=== PATIENT | female | born 1990 | race Caucasian/White ===

== ENCOUNTER 2019-11-19 14:15 | Inpatient (IN) ==
[2019-11-24] MEDS ORDERED: MAALOX PLUS LIQUID PO PRN (17:31)
[2019-11-24] MEDS ORDERED: IMODIUM PO PRN (17:31)
[2019-11-24] MEDS ORDERED: D5W 1,000 ML IV PRN (17:31)
[2019-11-24] MEDS ORDERED: NICODERM PATCH TD PRN (17:31)
[2019-11-24] MEDS ORDERED: SENOKOT PO PRN (17:31)
[2019-11-24] MEDS ORDERED: MOTRIN PO PRN (17:31)
[2019-11-24] MEDS ORDERED: DULCOLAX PR PRN (17:31)
[2019-11-24] MEDS ORDERED: TUBERSOL ID ONE (17:31)
[2019-11-24] MEDS ORDERED: ZOFRAN IV PRN (17:31)
[2019-11-24] MEDS ORDERED: ZOFRAN ODT PO PRN (17:31)
[2019-11-24] MEDS ORDERED: TYLENOL PO PRN (17:31)
[2019-11-24] MEDS ORDERED: SUBUTEX SL SCH (17:45)
[2019-11-24 18:05] LABS: HEMATOCRIT 36.6 % (37.0-47.0); HEMOGLOBIN 12.2 g/dL (12.0-16.0); MCH 27.9 PG (27-31); MCHC 33.3 g/dL (33-37); MCV 83.8 FL (81-99); MPV 9.5 FL (7.4-10.4); RBC 4.37 XMIL (4.2-5.4); RDW 13.7 % (11.5-14.5); WBC 8.07 X1000 (4.8-10.8)
[2019-11-24 18:22] LABS: URINE SOURCE VOIDED
[2019-11-24 18:22] LABS: AMYLASE 61 U/L (20-200); LIPASE 14 U/L (13-60)
[2019-11-24 18:24] LABS: BILIRUBIN URINE NEGATIVE (NEGATIVE); BLOOD URINE NEGATIVE (NEGATIVE); COLOR YELLOW; GLUCOSE URINE NEGATIVE (NEGATIVE); KETONE URINE NEGATIVE (NEGATIVE); LEUKOCYTES URINE LARGE (NEGATIVE); NITRITE URINE NEGATIVE (NEGATIVE); PROTEIN URINE 30 mg/dL (NEGATIVE); SP GRAVITY URINE 1.029; TURBIDITY URINE HAZY (CLEAR); UROBILINOGEN URINE 3 mg/dL (NORMAL)
[2019-11-24 18:25] LABS: UR EPITHELIAL CELLS >10 /HPF (<10); URINE BACTERIA 3+ /HPF; URINE RBC <10 /HPF (<10); URINE WBC TNTC /HPF (<10)
[2019-11-24 18:34] LABS: INR 0.89; PROTIME 12.5 Seconds (11.0-16.0)
[2019-11-24 18:37] LABS: AGAP 15; ALBUMIN 3.8 g/dL (3.5-5.0); ALKALINE PHOSPHATASE 98 U/L (32-104); BUN 9 mg/dL (8-22); CALCIUM 8.8 mg/dL (8.8-10.2); CHLORIDE 99 mmol/L (98-107); COSMO 266; CREATININE 0.4 mg/dL (0.5-0.9); ESTIMATED GFR > 60; GLUCOSE 117 mg/dL (70-104); POTASSIUM 3.6 mmol/L (3.5-5.1); SODIUM 133 mmol/L (136-145); TCO2 19 mmol/L (25-35); TOTAL PROTEIN 6.5 g/dL (6.3-8.3)
[2019-11-24 18:39] LABS: UR AMPHETAMINES QUAL PRESUMPTIVE POSITIVE (NONE DETECT); UR BARBITUATES QUAL NONE DETECTED (NONE DETECT); UR BENZODIAZEPIN QUAL PRESUMPTIVE POSITIVE (NONE DETECT); UR CANNABINOIDS QUAL PRESUMPTIVE POSITIVE (NONE DETECT); UR COCAINE QUAL NONE DETECTED (NONE DETECT); UR METHADONE QUAL NONE DETECTED (NONE DETECT); UR METHAMPHETAMINE QUAL PRESUMPTIVE POSITIVE (NONE DETECT); UR OPIATES QUAL PRESUMPTIVE POSITIVE (NONE DETECT); UR OXYCODONE QUAL NONE DETECTED (NONE DETECT); UR PCP QUAL NONE DETECTED (NONE DETECT); UR PROPOXYPHENE QUAL NONE DETECTED (NONE DETECT); UR TCA QUAL NONE DETECTED (NONE DETECT)
[2019-11-24 18:50] LABS: GOT 736 U/L (10-30); GPT 1039 U/L (10-36)
--- NOTE | 2019-11-24 19:39 | HISTORY AND PHYSICAL ---
CHIEF COMPLAINT: Nausea. HISTORY OF PRESENT ILLNESS: The patient is a 29-year-old female who presented to the [facility] program with nausea, abdominal pain, myalgias, paresthesias. States that she has been abusing opiates. Notes that she has found out that she is . She wants to get her life under control. SOCIAL HISTORY: Patient is single. She is currently unemployed. Lives at home in [place]. PAST MEDICAL HISTORY: She is approximately 18 weeks . Does have a history of kidney stones as well as chronic anxiety and depression, history of hypertension. MEDICATIONS: She is on no current medications other than vitamins. ALLERGIES: No known drug allergies. REVIEW OF SYSTEMS: CINA score is elevated at 9 secondary to nausea, abdominal pain, myalgias. States that typically her symptoms will continue to worsen with paresthesias and sweating as well as agitation. Denies any fevers, chills. Denies cough, congestion. Denies dysuria, frequency, constipation melena hematochezia. SUBSTANCE ABUSE HISTORY: The patient was in [facility] for mental health in 2008. States that substance abuse has caused legal problems. She has a misdemeanor in [place]. States that she wants to get her life back under control. Started drinking at age 27. Currently drinks a pint a day; although, stopped in October. Smokes marijuana daily since age 19, has tried depressants in the past. Started opiates at 19, currently using heroin every day. Started smoking at 19, currently smokes a pack a day. FAMILY HISTORY: Noncontributory. PHYSICAL EXAMINATION: VITAL SIGNS: Reviewed. Patient is awake, alert, currently in no respiratory distress. HEENT: Normocephalic. NECK: Supple. CARDIOVASCULAR: Regular rate. CHEST: Clear. ABDOMEN: Soft. EXTREMITIES: Moves all extremities. NEUROLOGIC: No changes. ASSESSMENT: 1. Nausea and vomiting. 2. Abdominal pain. 3. Myalgias. 4. Paresthesias. 5. Paroxysmal sweating. 6. Opiate abuse, withdrawal and stabilization. 7. Chronic tobacco abuse. 8. First trimester . PLAN: We will continue patient in the hospital. Continue Subutex due to her . Continue counseling. Further orders as needed. cc: Mikie Camp MD
[2019-11-24] MEDS: LIBRIUM PO PRN (23:20)
[2019-11-25 08:02] LABS: HEMATOCRIT 38.7 % (37.0-47.0); HEMOGLOBIN 12.5 g/dL (12.0-16.0); MCH 27.2 PG (27-31); MCHC 32.3 g/dL (33-37); MCV 84.3 FL (81-99); MPV 9.6 FL (7.4-10.4); RBC 4.59 XMIL (4.2-5.4); RDW 13.9 % (11.5-14.5); WBC 6.54 X1000 (4.8-10.8)
[2019-11-25 08:47] LABS: AGAP 12; BUN 7 mg/dL (8-22); CHLORIDE 103 mmol/L (98-107); COSMO 273; GLUCOSE 83 mg/dL (70-104); POTASSIUM 4.3 mmol/L (3.5-5.1); SODIUM 138 mmol/L (136-145); TCO2 23 mmol/L (25-35)
[2019-11-25 08:48] LABS: ALBUMIN 3.4 g/dL (3.5-5.0); ALKALINE PHOSPHATASE 95 U/L (32-104); CALCIUM 8.9 mg/dL (8.8-10.2); CREATININE 0.4 mg/dL (0.5-0.9); ESTIMATED GFR > 60; GOT 877 U/L (10-30); TOTAL PROTEIN 6.5 g/dL (6.3-8.3)
[2019-11-25 08:57] LABS: GPT 1117 U/L (10-36)
[2019-11-25] MEDS: VITAMIN B-1 PO SCH (10:37)
[2019-11-25] MEDS: LIBRIUM PO PRN ×2 (10:37→20:45)
[2019-11-25] MEDS: FOLIC ACID PO SCH (10:37)
[2019-11-25] MEDS: THERA M PLUS PO SCH (10:37)
[2019-11-25] MEDS: SUBUTEX SL SCH ×2 (14:47→23:20)
--- NOTE | 2019-11-26 00:12 | PROGRESS NOTE ---
DATE: 11/25/2019 SUBJECTIVE: The patient has no new complaints, states overall she is starting to feel a little bit better. Denies any fevers, chills, nausea, or vomiting. PHYSICAL EXAMINATION: Vital Signs: Reviewed. General: She is awake, alert. She is in no current respiratory distress. HEENT: Normocephalic. Neck: Supple. Cardiovascular: Regular rate. Chest: Clear. Abdomen: Soft. Extremities: Moves all extremities. ASSESSMENT: 1. Hepatitis of undetermined origin. Hepatitis panel is pending, likely secondary to substance abuse. 2. Nausea, vomiting. 3. Abdominal pain. 4. Myalgias. 5. . PLAN: We are going to continue the patient in the hospital. Continue Subutex. Continue counseling. Further orders as needed cc: Mikie Camp MD MTDD
[2019-11-26] MEDS: LIBRIUM PO PRN (03:05)
[2019-11-26] MEDS: SUBUTEX SL SCH (06:13)
[2019-11-26 07:49] VITALS: BP 113/67
[2019-11-26] MEDS: THERA M PLUS PO SCH (08:07)
[2019-11-26] MEDS: VITAMIN B-1 PO SCH (08:07)
[2019-11-26] MEDS ORDERED: SUBUTEX SL SCH (09:00)
[2019-11-26 11:04] LABS: HEPATITIS PROFILE ACUTE SEE COMMENTS
[2019-11-26] MEDS: FOLIC ACID PO SCH (11:13)
--- NOTE | 2019-11-26 22:15 | DISCHARGE SUMMARY ---
ADMISSION DATE: 11/24/2019 DISCHARGE DATE: 11/26/2019 DISCHARGE DIAGNOSES: 1. Nausea and vomiting. 2. Abdominal pain. 3. Myalgias. 4. Hepatitis. Hepatitis panel is still pending. The patient is aware. 5. Opiate abuse, withdrawal and stabilization. 6. , first trimester. CONSULTATIONS: None. PROCEDURES: None. BRIEF HOSPITAL COURSE: The patient is a 29-year-old female who presented to the hospital, treated in the usual fashion, placed on Subutex due to her . We did continue to wean down her Subutex to 4 mg daily, which she tolerated very well. On discharge she is awake, alert. She is in no distress. DISPOSITION: The patient will be discharged home. Discussed with the patient that her LFTs are still elevated, the hepatitis panel is still pending. She is aware to follow up as an outpatient with this. She will continue Subutex 4 mg twice daily until delivery, and then we will attempt to begin weaning after that. Also discussed with the patient smoking and the importance of weaning down and stopping during . cc: Mikie Camp MD MTDD
[2019-11-29 14:29] LABS: HCV BY PCR SEE COMMENTS
== END 2019-11-26 12:25 | disposition home or self-care (01) | DRG 832 ==
LOC: P.DIRADM 11-24 16:29 → P.MEDSURG 11-24 16:49
PROVIDERS: ADMIT Family Medicine; ATTEND Family Medicine